=== PATIENT | male | born 1980 | race Caucasian/White ===

== ENCOUNTER 2023-12-11 10:59 | Outpatient (CLI) | payer OTHER, SELFPAY ==
--- OUTSIDE RECORDS SUMMARY | 2023-12-11 11:26 | XMS RPT_ITS | CCD ---
Author Name Unknown Address [address] [place] [address] Organization [facility] Care Team Providers Care 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 Name Role Phone [facility] Attending Unava ilable [facility] Primary Care Unava ilable [facility] Admitting Unava ilable Unknown, Pcp Unavailable Unavailable Kelly Rubin Unavailable Ruth Goldstein MD, Ankur Farrell Primary Care Provider Amy vailable Triston DAWKINS, Ankur Pedroza Primary Care Provider Triston DAWKINS, Ankur Pedroza Unavailable Ankur Goldstein MD Primary Care Provider Triston DAWKINS, Ankur Pedroza Unavailable ANKUR GOLDSTEIN Primary Care Unavaila ble THRUSHYOMI Attending Unavailable [employer] CONSULTANT, PRERNANAMABRANE Admitting Unavailable [employer] CONSULTANT, DARIA Attending Unavailable [employer] CONSULTANT, MELINDAE Admitting Unavailable STORMONT, ANKUR PEDROZA Primary Care Unavaila ble STORMONT, ANKUR PEDROZA Admitting Unavaila ble [employer] CONSULTANT, DARIA Attending Unavailable STORMONT, ANKUR PEDROZA Referring Unavaila ble STORMONT, ANKUR PEDROZA Primary Care Unavaila ble [employer] CONSULTANT, DARIA Attending Unavailable STORMONT, ANKUR PEDROZA Primary Care Unavaila ble Ankur Goldstein MD Primary Care Provider Amy vailable Allergies Allergy Classification Reported Allergen(s) Allergy Type Date of Onset Reaction(s) Facility (1 source) Penicillin Drug Allergy Unknown [facility] (9 sources) Penicillins; Translations: [PENICILLINS] Propensity to adverse reactions to drug 11-02-2021 Unknown [facility] Medications Current Medications Medication Drug Class(es) Dates Sig (Normalized) Sig (Original) [id number] 200 actuat albuterol 0.09 mg/actuat metered dose inhaler (1 source) beta2-Adrenergic Agonist Start: 06-30-2021 End: 07-09-2021 take 2 puff(s) by inhalation every four hours as needed for wheezing albuterol 90 mcg/inh inhalation aerosol ; 2 puff(s) inhaled every 4 hours, As Needed for wheezing or shortness of breath Quantity: 1 Refills: 0 Ordered: 30-Jun-2021 Kelly Rubin Start: 30-Jun-2021 End: 09-Jul-2021 Generic Substitution Allowed Comments: For inhalation only.It is very important that you take or use this exactly as directed. Do not skip doses or discontinue unless directed by your doctor.Obtain medical advice before taking any non-prescription drugs as some may affect the action of this medication.Shake well before use. Completed/Discontinued Medications Medication Drug Class(es) Dates Sig (Normalized) Sig (Original) iohexol (OMNIPAQUE) 350 MG/ML injection 75 mL (1 source) Start: 01-11-2022 End: 01-11-2022 iohexol (OMNIPAQUE) 350 MG/ML injection 75 mL 250 ml sodium chloride 9 mg/ml injection (1 source) Start: 01-11-2022 End: 01-11-2022 sodium chloride 0.9% IV solution 75 mL Problems Active Problems Problem Classification Problem Date Documented Da te Episodic/Chronic Abdominal hernia (4 sources) Inguinal hernia; Translations: [Unilateral inguinal hernia, without obstruction or gangrene, not specified as recurrent] Onset: 02-15-2022 Episodic Acute bronchitis (2 sources) Acute bronchitis; Translations: [Acute bronchitis] 06-30-2021 Episodic Diabetes mellitus with complications (1 source) Diabetic - poor control; Translations: [Type 2 diabetes mellitus with hyperglycemia] Chronic Essential hypertension (1 source) Essential hypertension; Translations: [Essential (primary) hypertension] Chronic Unclassified (2 sources) COUGH, RUNNY NOSE, SOB, SWEATING 06-30-2021 Past or Other Problems Problem Classification Problem Date Documented Da te Episodic/Chronic Other male genital disorders (9 sources) Large testicle; Translations: [Other specified disorders of the male genital organs] Onset: 11-02-2021 Episodic Other screening for suspected conditions (not mental disorders or infectious disease) (7 sources) Patient encounter status; Translations: [Encounter for screening for lipoid disorders] Onset: 11-02-2021 Episodic Unclassified (1 source) COUGH RUNNING NOSE SOB SWEATING 06-30-2021 Results Test Name Value Interpretation Reference Range Facil ity Vital Signs Date Time Vital Sign Value Performing Clinician Facility 11-15-2022 13:35-0500 Body temperature 98.1 [degF] Ankur Goldstein MD Work Phone: [facility] 11-15-2022 13:35-0500 Body weight 89.36 kg Ankur Goldstein MD Work Phone: [facility] 11-15-2022 13:35-0500 Diastolic blood pressure 92 mm[Hg] Ankur Goldstein MD Work Phone: [facility] 11-15-2022 13:35-0500 Heart rate 78 /min Ankur Goldstein MD Work Phone: [facility] 11-15-2022 13:35-0500 SaO2% (BldA) [Mass fraction] 98 % Ankur Goldstein MD Work Phone: [facility] 11-15-2022 13:35-0500 Systolic blood pressure 130 mm[Hg] Ankur Goldstein MD Work Phone: [facility] 04-04-2022 08:04-0400 Body mass index (BMI) [Ratio] 27.32 kg/m2 Daria Salcido MD Work Phone: [facility] 04-04-2022 08:04-0400 Body weight 83.92 kg Daria Salcido MD Work Phone: [facility] 04-04-2022 08:04-0400 Diastolic blood pressure 84 mm[Hg] Daria Salcido MD Work Phone: [facility] 04-04-2022 08:04-0400 Heart rate 78 /min Daria Salcido MD Work Phone: [facility] 04-04-2022 08:04-0400 Systolic blood pressure 128 mm[Hg] Daria Salcido MD Work Phone: [facility] 02-15-2022 10:51-0400 Body height 175.3 cm Daria Salcido MD Work Phone: [facility] 02-15-2022 10:51-0400 Body mass index (BMI) [Ratio] 28.37 kg/m2 Daria Salcido MD Work Phone: [facility] 02-15-2022 10:51-0400 Body temperature 98.29 [degF] Daria Salcido MD Work Phone: [facility] 02-15-2022 10:51-0400 Body weight 87.14 kg Daria Salcido MD Work Phone: [facility] 02-15-2022 10:51-0400 Diastolic blood pressure 90 mm[Hg] Daria Salcido MD Work Phone: [facility] 02-15-2022 10:51-0400 Heart rate 73 /min Daria Salcido MD Work Phone: [facility] 02-15-2022 10:51-0400 SaO2% (BldA) [Mass fraction] 96 % Daria Salcido MD Work Phone: [facility] 02-15-2022 10:51-0400 Systolic blood pressure 131 mm[Hg] Daria Salcido MD Work Phone: [facility] 12-14-2021 10:38-0500 Body temperature 97.5 [degF] Ankur Goldstein MD Work Phone: [facility] 12-14-2021 10:38-0500 Diastolic blood pressure 80 mm[Hg] Ankur Goldstein MD Work Phone: [facility] 12-14-2021 10:38-0500 Heart rate 74 /min Ankur Goldstein MD Work Phone: [facility] 12-14-2021 10:38-0500 SaO2% (BldA) [Mass fraction] 96 % Ankur Goldstein MD Work Phone: [facility] 12-14-2021 10:38-0500 Systolic blood pressure 120 mm[Hg] Ankur Goldstein MD Work Phone: [employer] [facility] 11-02-2021 14:11-0500 Body temperature 98.2 [degF] Ankur Goldstein MD Work Phone: [employer] [facility] 11-02-2021 14:11-0500 Body weight 88.45 kg Ankur Goldstein MD Work Phone: [employer] [facility] 11-02-2021 14:11-0500 Diastolic blood pressure 94 mm[Hg] Ankur Goldstein MD Work Phone: [employer] [facility] 11-02-2021 14:11-0500 Heart rate 85 /min Ankur Goldstein MD Work Phone: [employer] [facility] 11-02-2021 14:11-0500 SaO2% (BldA) [Mass fraction] 97 % Ankur Goldstein MD Work Phone: [employer] [facility] 11-02-2021 14:11-0500 Systolic blood pressure 142 mm[Hg] Ankur Goldstein MD Work Phone: [facility] 06-30-2021 12:52-0400 Body height 180.3 cm Pcp Unknown [facility] 06-30-2021 12:52-0400 Body temperature 96.26 [degF] Pcp Unknown [facility] 06-30-2021 12:52-0400 Diastolic blood pressure 89 mm[Hg] Pcp Unknown [facility] 06-30-2021 12:52-0400 Heart rate 83 /min Pcp Unknown [facility] 06-30-2021 12:52-0400 SaO2% (BldA) [Mass fraction] 97 % Pcp Unknown [facility] 06-30-2021 12:52-0400 Systolic blood pressure 134 mm[Hg] Pcp Unknown [facility] Encounters Encounter Date Encounter Type Care Provider Facility Start: 11-15-2022 End: 11-15-2022 Office outpatient visit 25 minutes Ankur Goldstein MD Work Phone: [facility] Procedures Date Procedure Procedure Detail Performing Clinician Start: 04-04-2022 History of repair of inguinal hernia Status post left inguinal hernia repair Daria Salcido MD Work Phone: Start: 01-11-2022 Ct abdomen & pelvis w/o contrst 1/> body re Ankur Goldstein MD Work Phone: Start: 11-18-2021 Lipid 1996 panel - Serum or Plasma Ankur Goldstein MD Work Phone: Plan of Treatment Date Care Activity Detail Author Start: 11-18-2026 Fasting lipid profile LIPID SCREENIN [facility] [employer] [facility] Start: 11-18-2026 Lipid panel LIPID SCREENING [facility] Start: 05-16-2023 End: 05-16-2023 Patient encounter procedure 05/16/2023 Office Visit Family Medicine Ankur Goldstein MD [address] [place] [address] [facility] Start: 11-15-2022 End: 11-15-2023 Complete blood count with white cell differential, automated CBC, EDIF, PLATELET Lab Routine Poorly controlled diabetes mellitus Expected: 11/15/2022, Expires: 11/15/2023 [facility] Payers Date Payer Category Payer Private Health Insurance [employer] C [employer]IC [id number] 2021-Present [address] [place] [address] [id number] 2021 Private Health Insurance [employer] C [employer]IC [id number] 2021-Present [address] [place] [address] [id number] 2021 Unknown 1980 Unknown [id number] 1980 Unknown [id number] 1980 Unknown [id number] 1980 Unknown [id number] Unknown [id number] Social History Date Type Detail Facility [facility] Tobacco smoking consumption unknown [facility] Start: 11-02-2021 End: 11-15-2022 Tobacco smoking status NHIS Never smoked tobacco [facility] Start: 11-02-2021 End: 11-15-2022 Tobacco use and exposure Former smokeless tobacco user [facility] Start: 11-02-2021 End: 11-15-2022 Alcohol intake Current drinker of alcohol (finding) [facility] Start: 11-02-2021 History SDOH Alcohol Comment occasionally [facility] Start: 1980 Sex Assigned At Not on file [facility] End: 08-08-2021 History of tobacco use User of smokeless tobacco [facility] Start: 02-15-2022 History SDOH Alcohol Comment rare [facility] Start: 02-05-2022 End: 04-04-2022 Exposure to SARS-CoV-2 (event) Not sure [facility] Start: 02-15-2022 Cigarette pack-years [facility] Start: 03-15-2022 History SDOH Alcohol Comment once a month - weekends [facility] Medical Equipment Procedure Code Equipment Code Equipment Origin al Text Equipment Identifier Dates Mesh 3 X 6in Polypropylene Flat Sheet - Sn/A [id number])[id number]/A, [id number] [facility] Start: 03-25-2022 Clinical Notes 11-02-2021 to 11-15-2022 Ankur Goldstein MD - 11/15/2022 1:50 PM Mirza Salcido MD - 04/04/2022 7:56 AM Raleigh Salcido MD - 02/15/2022 10:54 AM Domi Goldstein MD - 12/14/2021 10:40 AM EST Note Date & Type Note Facility 11-15-2022 History of Presen t illness Narrative Follow Up Visit Noah Burrell [id number] 1980 11/15/2022 Chief Complaint Patient presents with Other 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 He has type 2 diabetes mellitus. His disease course has been stable. Pertinent negatives for diabetes include no chest pain and no fatigue. Symptoms are stable. Risk factors for coronary artery disease include diabetes mellitus and obesity. An LEISA inhibitor/angiotensin II receptor lonny is being taken. Hypertension This is a new problem. The current episode started 1 to 4 weeks ago. The problem is uncontrolled. Pertinent negatives include no chest pain, palpitations or shortness of breath. Risk factors for coronary artery disease include diabetes mellitus, sedentary lifestyle and male gender. History: No past medical history on file. No past surgical history on file. Family History Problem Relation Age of Onset Heart Disease - Other Mother Cancer Father brain cancer Social History Socioeconomic History Marital status: Tobacco Use Smoking status: Never Smokeless tobacco: Former Vaping Use Vaping Use: Never used Substance and Sexual Activity Alcohol use: Yes Comment: occasionally Drug use: Never Sexual activity: Yes Partners: Female Social History Tobacco Use Smoking Status Never Smokeless Tobacco Former Social History Substance and Sexual Activity Alcohol Use Yes Comment: occasionally Social History Substance and Sexual Activity Drug Use Never Allergies: Penicillins Home Medications: Current Outpatient Medications: cyanocobalamin 1000 MCG tablet, Take 2.5 tablets by mouth., Disp: , Rfl: Multiple Vitamin (MULTIVITAMIN ADULT PO), Take by mouth., Disp: , Rfl: Losartan (Cozaar) 50 MG tablet, Take 1 tablet by mouth daily., Disp: 90 tablet, Rfl: 5 ROS: Review of Systems Constitutional: Negative for chills, fatigue and fever. Respiratory: Negative for cough and shortness of breath. Cardiovascular: Negative for chest pain and palpitations. Gastrointestinal: Negative for constipation and diarrhea. Physical Examination: Vital Signs: BP (!) 130/92 Pulse 78 Temp 98.1 F (36.7 C) Wt 89.4 kg (197 lb) SpO2 98% Smoking Status Never Physical Exam Constitutional: Appearance: Normal appearance. Neurological: Mental Status: He is alert. Psychiatric: Mood and Affect: Mood normal. Behavior: Behavior normal. Procedure none Laboratory and Additional Data Reviewed: Results for orders placed or performed in visit on 11/18/21 LIPID PANEL W CALCULATED LDL Result Value Ref Range CHOLESTEROL 190 120 - 200 MG/DL TRIGLYCERIDE 165 (H) 0 - 150 MG/DL HDL CHOLESTEROL 47 26 - 63 MG/DL LDL CHOLESTEROL, CALCULATED 110 MG/DL VLDL Cholesterol, Calculated 33 (H) 5.0 - 25 MG/DL TCHOL/HDL RATIO, MANUAL ENTER 4.04 RATIO BASIC METABOLIC PANEL Result Value Ref Range Glucose 136 (H) 70 - 100 MG/DL BUN 20 7 - 20 MG/DL CREATININE SERUM 1.30 (H) 0.7 - 1.2 MG/DL SODIUM 139 137 - 145 MMOL/L POTASSIUM 4.6 3.5 - 5.1 MMOL/L CHLORIDE 106 98 - 107 MMOL/L CARBON DIOXIDE (CO2) 26 22 - 30 MMOL/L ANION GAP 7 (L) 8 - 16 MMOL/L CALCIUM 9.1 8.4 - 10.2 MG/DL ESTIMATED GFR, NON AMER 65 ml/min/1.73sq.m ESTIMATED GFR, 78 ml/min/1.73sq.m GFR COMMENT Average GFR for 40-49 years old = 99. No images are attached to the encounter. Assessment and Plan: Noah Burrell is a 42 y.o. male that presents for follow up for Call the office for any questions or concerns. I did have discussion that if any medications are not covered or is not able to get the medications to call the office and let us know so other alternative/arrangements can be made. Noah was seen today for other. Diagnoses and all orders for this visit: Poorly controlled diabetes mellitus - AMB REFERRAL TO DIABETIC EDUCATION - COMPREHENSIVE METABOLIC PANEL; Future - LIPID PANEL W CALCULATED LDL; Future - CBC, EDIF, PLATELET; Future - HEMOGLOBIN A1C; Future Essential hypertension - Losartan (Cozaar) 50 MG tablet; Take 1 tablet by mouth daily. Ankur Goldstein MD documented in this encounter [facility] 04-04-2022 History of Presen t illness Narrative [facility] PATIENT: Noah Burrell DATE / TIME: 04/04/22 7:56 AM POS: Office AGE: 41 y.o. : 1980 RACE: [1] SEX: male PCP: Ankur Goldstein MD REFERRAL: No ref. provider found TOS: SUBJECTIVE: Status post left open inguinal hernia repair with mesh for large scrotal inguinal hernia continue the majority of the omentum. he returns today for follow-up. OBJECTIVE: BP 128/84 Pulse 78 Wt 83.9 kg (185 lb) BMI 27.32 kg/m PE Constitutional: Well-developed and well-nourished. HENT: AT / NC, EOM normal, no icterus, pupils equal Neck: Normal range of motion. Neck supple. No thyromegaly present. Cardiovascular: Normal rate and regular rhythm. Pulmonary/Chest: Effort normal. No respiratory distress. No wheezes, rales or rhonchi. Abdominal: Soft. No distension. No tenderness. Left inguinal incision intact without any erythema fluctuance or drainage healing ridge and fatty induration is Hematoma palpable likely within the scrotum but no evidence of recurrence of hernia Musculoskeletal: Normal range of motion. No deformity. No edema. Neurological: Alert and oriented to person, place, and time. No cranial nerve deficit. Skin: Skin is warm and dry. Psychiatric: Normal mood and affect. Behavior is normal. Lab Results Component Value Date WBC 7.26 03/15/2022 RBC 4.72 03/15/2022 HGB 14.0 03/15/2022 HCT 41.0 03/15/2022 PLT 246 03/15/2022 No results found for: AMYLASE No results found for: LIPASE IMAGING: PATHOLOGY: ASSESSMENT: Status post left open inguinal hernia repair with mesh for large scrotal inguinal hernia continue the majority of the omentum. he returns today for follow-up. PLAN: Patient Active Problem List Diagnosis Left inguinal hernia Preop examination Instructed patient to continue a lifting restriction of 10 pounds for a total of 4 weeks from his date of surgery Patient can return to my office if any problems arise concern for recurrence documented in this encounter [facility] 02-15-2022 History of Presen t illness Narrative [facility] PATIENT: Noah Burrell DATE / TIME: 02/15/22 10:54 AM POS: Office AGE: 41 y.o. : 1980 RACE: [1] SEX: male PCP: Ankur Goldstein MD REFERRAL: Ankur Goldstein* HISTORY OF PRESENT ILLNESS CC / Reason for Consult: Left inguinal hernia HPI: 41-year-old man without significant medical history but reports history of nondistended testicles requiring operative management at the age of 11 referred by his family physician for left-sided inguinal hernia. Reports the presence of the hernia for his entire life. Feels it has gotten larger recently. Complains of soreness and pain with certain positions movements and palpation. Denies any issues with bowel movements or urination. PAST MEDICAL / SURGICAL HISTORY History reviewed. No pertinent past medical history. Past Surgical History: Procedure Laterality Date UNDESCENDED TESTICLE EXPLORATION 1990 FAMILY HISTORY Family History Problem Relation Age of Onset Brain cancer Father Brain cancer Paternal Aunt SOCIAL HISTORY Data Unavailable Social History Tobacco Use Smoking Status Never Smoker Smokeless Tobacco Former User Quit date: 08/08/2021 Social History Substance and Sexual Activity Alcohol Use Yes Comment: rare Social History Substance and Sexual Activity Drug Use Never MEDICATIONS: Patient has a current medication list which includes the following prescription(s): cyanocobalamin and [id number] acid. ALLERGIES: Allergies Allergen Reactions Penicillins Unknown REVIEW OF SYSTEMS Pertinent positives and negatives are listed in HPI, PMSH, SH, ALL above and in Details below. The following systems were reviewed: [] Const (fevers, chills, wt. loss, fatigue) [] CV (HTN, CP, CERVANTES, edema, DVT) [] Resp (SOB, pleurisy, asthma, apnea) [] GI (N, V, D, C, M, abd pain, appetite) [] Musc (back pain, joint stiffness, gout) [] Neuro (seizures, syncope, paralysis) [] Psych (depression, anxiety) [] Endo (hot/cold intol, polyuria[DM]) [] Hem/Lymph (Anemia, LA, bleeding) [] Allerg/Immun (seasonal, immuniz) [] Eyes (diplopia, cataracts) [] ENT/mouth (dysphagia, epistaxis) [] (dysuria, hematuria) [] Skin/Breast (moles, rash, lumps, nipple changes) Details: PHYSICAL EXAM BP (!) 131/90 (BP Location: Right arm, Patient Position: Sitting, BP Cuff Size: Adult) Pulse 73 Temp 98.3 F (36.8 C) (Oral) Ht 5' 9 Wt 87.1 kg (192 lb 1.6 oz) SpO2 96% BMI 28.37 kg/m Details: Physical Exam Constitutional: Appearance: Normal appearance. HENT: Head: Normocephalic. Mouth/Throat: Mouth: Mucous membranes are moist. Eyes: Pupils: Pupils are equal, round, and reactive to light. Cardiovascular: Rate and Rhythm: Normal rate. Pulmonary: Effort: Pulmonary effort is normal. Abdominal: General: There is no distension. Palpations: Abdomen is soft. Tenderness: There is no abdominal tenderness. Genitourinary: Comments: Large left scrotal inguinal hernia incarcerated unable to reduce very tender to palpation. Unable to palpate left testicle Musculoskeletal: General: Normal range of motion. Skin: General: Skin is warm. Neurological: General: No focal deficit present. Mental Status: He is alert. Psychiatric: Mood and Affect: Mood normal. Thought Content: Thought content normal. LABS / X-RAYS Details: Laboratory No results found for: WBC, RBC, HGB, HCT, PLT No results found for: AMYLASE No results found for: LIPASE ASSESSMENT AND PLAN: Patient Active Problem List Diagnosis Left inguinal hernia Discussed with him the operative management. Due to its incarcerated nature, inability to palpate his testicle and the previous undescended testicle surgery that he had I would recommend open operative repair. Risk and possible complications of left-sided open inguinal hernia repair possible orchiectomy were discussed Was rhys with the patient about my concern of the need to perform a left-sided orchiectomy during his surgery as I am unable to palpate it have no idea where it is within relation to his hernia and the risk of devascularization when attempting to get the omentum up and out of the scrotum. Patient does have a CT abdomen and pelvis that was performed at [facility]. Report only comments on a left-sided inguinal hernia. However I am awaiting arrival of the images so that I can review to assess the right side inguinal canal. Patient understanding of the risks Consent signed Schedule today 1. Left inguinal hernia Case Request Operating Room: REPAIR HERNIA INGUINAL Vital signs Basic metabolic panel CBC ECG 12 Lead lactated Ringers infusion (This order has not been finalized) clindamycin (CLEOCIN) 900 mg in sodium chloride 0.9 % (NS) 50 mL IVPB (This order has not been finalized) Total time 30 minutes, greater than 50% spent [id number] with the patient obtaining history, performing exam explaining the procedure obtaining consent and coordinating care Anticip Anesthesia: Follow-up: ICD: Left inguinal hernia [K40.90] [] Thank you for the privilege of allowing me to participate in the care of Noah Burrell. documented in this encounter [facility] 12-14-2021 History of Presen t illness Narrative Follow Up Visit Noah Burrell [id number] 1980 12/14/2021 Chief Complaint Patient presents with Results Discuss ultra sound results History of Present Illness: Noah Burrell is a 41 y.o. male presenting for follow up of Pt here to go over his ultrasound: IMPRESSION: 1. There is increased blood flow in the left testicle. This may indicate orchiditis. 2. There is a hypoechoic region along the anterior aspect of the right testicle that is of uncertain etiology. It could represent postsurgical changes. 3. There is a small cystic lesion with fluid level posterior to the right testicle. This is also of uncertain etiology and could possibly represent postsurgical changes. 4. Possible left-sided varicocele. 5. There is prominent soft tissue in the left side of the scrotum. This may represent herniated fat. Recommend followup sonographic evaluation. Also consider a followup CT of the pelvis with IV and oral contrast. History: No past medical history on file. No past surgical history on file. Family History Problem Relation Age of Onset Heart Disease - Other Mother Cancer Father brain cancer Social History Socioeconomic History Marital status: Tobacco Use Smoking status: Never Smoker Smokeless tobacco: Former User Vaping Use Vaping Use: Never used Substance and Sexual Activity Alcohol use: Yes Comment: occasionally Drug use: Never Sexual activity: Yes Partners: Female Social History Tobacco Use Smoking Status Never Smoker Smokeless Tobacco Former User Social History Substance and Sexual Activity Alcohol Use Yes Comment: occasionally Social History Substance and Sexual Activity Drug Use Never Allergies: Penicillins Home Medications: Current Outpatient Medications: cyanocobalamin 1000 MCG tablet, Take 2,500 mcg by mouth., Disp: , Rfl: Multiple Vitamin (MULTIVITAMIN ADULT PO), Take by mouth., Disp: , Rfl: ROS: Review of Systems All other systems reviewed and are negative. Physical Examination: Vital Signs: BP 120/80 Pulse 74 Temp 97.5 F (36.4 C) SpO2 96% Smoking Status Never Smoker Physical Exam Constitutional: Appearance: Normal appearance. Neurological: Mental Status: He is alert. Psychiatric: Mood and Affect: Mood normal. Behavior: Behavior normal. Procedure none Laboratory and Additional Data Reviewed: Results for orders placed or performed in visit on 11/18/21 LIPID PANEL W CALCULATED LDL Result Value Ref Range CHOLESTEROL 190 120 - 200 MG/DL TRIGLYCERIDE 165 (H) 0 - 150 MG/DL HDL CHOLESTEROL 47 26 - 63 MG/DL LDL CHOLESTEROL, CALCULATED 110 MG/DL VLDL 33 (H) 5.0 - 25 MG/DL TCHOL/HDL RATIO, MANUAL ENTER 4.04 RATIO BASIC METABOLIC PANEL Result Value Ref Range GLUCOSE 136 (H) 70 - 100 MG/DL BUN 20 7 - 20 MG/DL CREATININE SERUM 1.30 (H) 0.7 - 1.2 MG/DL SODIUM 139 137 - 145 MMOL/L POTASSIUM 4.6 3.5 - 5.1 MMOL/L CHLORIDE 106 98 - 107 MMOL/L CARBON DIOXIDE (CO2) 26 22 - 30 MMOL/L ANION GAP 7 (L) 8 - 16 MMOL/L CALCIUM 9.1 8.4 - 10.2 MG/DL ESTIMATED GFR, NON AMER 65 ml/min/1.73sq.m ESTIMATED GFR, 78 ml/min/1.73sq.m GFR COMMENT Average GFR for 40-49 years old = 99. No images are attached to the encounter. Assessment and Plan: Noah Burrell is a 41 y.o. male that presents for follow up for Call the office for any questions or concerns. I did have discussion that if any medications are not covered or is not able to get the medications to call the office and let us know so other alternative/arrangements can be made. Noah was seen today for results. Diagnoses and all orders for this visit: Enlarged testicle - CT PELVIS WITH CONTRAST; Future - CT PELVIS WITHOUT CONTRAST; Future Ankur Goldstein MD documented in this encounter [facility] 11-02-2021 History of Presen t illness Narrative SUBJECTIVE: Noah Burrell is a 41 y.o. male presenting for his annual checkup. Pt had surgery when he was 12 and had an undescended testicle; complaining that here is a fluid filled sac there Current Outpatient Medications Medication Sig Dispense Refill cyanocobalamin 1000 MCG tablet Take 2,500 mcg by mouth. Multiple Vitamin (MULTIVITAMIN ADULT PO) Take by mouth. No current facility-administered medications for this visit. Allergies: Penicillins ROS: Feeling well. No dyspnea or chest pain on exertion. No abdominal pain, change in bowel habits, black or bloody stools. No urinary tract or prostatic symptoms. No neurological complaints. OBJECTIVE: The patient appears well, alert, oriented x 3, in no distress. BP (!) 142/94 Pulse 85 Temp 98.2 F (36.8 C) Wt 88.5 kg (195 lb) SpO2 97% Smoking Status Never Smoker ENT normal. Neck supple. No adenopathy or thyromegaly. VINICIUS. Lungs are clear, good air entry, no wheezes, rhonchi or rales. S1 and S2 normal, no murmurs, regular rate and rhythm. Abdomen is soft without tenderness, guarding, mass or organomegaly. exam: deferred. Extremities show no edema, normal peripheral pulses. Neurological is normal without focal findings. ASSESSMENT: healthy adult male Elevated bp-cont to monitor Enlarged testicles PLAN: begin progressive daily aerobic exercise program, follow a low fat, low cholesterol diet, attempt to lose weight, continue current healthy lifestyle patterns and return for routine annual checkups documented in this encounter [facility] Diagnosis Enlarged testicle Other specified disorder of male genital organs [facility] Diagnosis Enlarged testicle- Primary Other specified disorder of male genital organs [facility] Diagnosis Enlarged testicle Other specified disorder of male genital organs [facility] Diagnosis Inguinal hernia without obstruction or gangrene, recurrence not specified, unspecified laterality- Primary [facility] Diagnosis Left inguinal hernia- Primary Inguinal hernia without mention of obstruction or gangrene, unilateral or unspecified, (not specified as recurrent) Left inguinal hernia Inguinal hernia without mention of obstruction or gangrene, unilateral or unspecified, (not specified as recurrent) [facility] Diagnosis Status post left inguinal hernia repair- Primary Other [facility] Diagnosis Poorly controlled diabetes mellitus- Primary Type II or unspecified type diabetes mellitus without mention of complication, not stated as uncontrolled Essential hypertension Unspecified essential hypertension [facility] Consultation (Routine) - Authorized Specialty Diagnoses / Procedures Referred By Ashleigh watters Referred To Contact General Surgery Diagnoses Inguinal hernia without obstruction or gangrene, recurrence not specified, unspecified laterality Ankur Goldstein MD [address] [place] [address] [facility] Office Building, [address]th [place] [address] Referral ID Status Reason Start Date Expiration Date Visits Requested Visits Authorized [id number] Authorized Specialty Services Required/Pat ient's Best Interest 02/01/2022 02/01/[address] [facility] Summary Purpose Family History No Family History Records FoundNo Family History Records FoundNo Family History Records FoundNo Family History Records FoundNo Family History Records FoundNo Family History Records Found Advance Directives Documents on File Type Date Recorded 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 Advance Directives 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 Living Will Documents on File Type Date Recorded 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 Advance Directives and Living Will Reason for Referral Specialty Diagnoses / Procedures Referred By Ashleigh watters Referred To Contact Diagnoses Enlarged testicle Procedures US SCROTUM AND TESTICLES Ankur Goldstein MD [address] [place] [address] Referral ID Status Reason Start Date Expiration Date V isits Requested Visits Authorized [id number] New Request 11/02/2021 11/27/2022 1 1 Specialty Diagnoses / Procedures Referred By Contac t Referred To Contact Diagnoses Enlarged testicle Procedures US SCROTUM AND TESTICLES WITH DOPPLER US SCROTUM AND TESTICLES Ankur Goldstein MD [address] [place] [address] Referral ID Status Reason Start Date Expiration Date Visits Re quested Visits Authorized [id number] Closed 11/02/2021 11/27/2022 1 1 Specialty Diagnoses / Procedures Referred By Contac t Referred To Contact Diagnoses Enlarged testicle Procedures CT PELVIS WITHOUT CONTRAST IN CT SCAN,PELVIS,W/O CONTRAST Ankur Goldstein MD [address] [place] [address] Referral ID Status Reason Start Date Expiration Date V isits Requested Visits Authorized [id number] New Request 12/14/2021 01/08/2023 1 1 Specialty Diagnoses / Procedures Referred By Contac t Referred To Contact Diagnoses Enlarged testicle Procedures CT PELVIS WITH CONTRAST IN CT SCAN OF PELVIS CONTRAST Ankur Goldstein MD [address] [place] [address] Referral ID Status Reason Start Date Expiration Date V isits Requested Visits Authorized [id number] New Request 12/14/2021 01/08/2023 1 1 Specialty Diagnoses / Procedures Referred By Contac t Referred To Contact Computerized Tomography Scan Diagnoses Enlarged testicle Procedures CT ABDOMEN/PELVIS WITH AND WITHOUT CONTRAST CHG CT SCAN,ABDOMENT AND PELVIS,COMBO Ankur Goldstein MD [address] [place] [address] [place] [address] Referral ID Status Reason Start Date Expiration Date Visits Re quested Visits Authorized [id number] Closed 12/18/2021 01/12/2023 1 1 Specialty Diagnoses / Procedures Referred By Contac t Referred To Contact Endocrinology, Diabetes & Metabolism Diagnoses Poorly controlled diabetes mellitus Ankur Goldstein MD [address] [place] [address] Hosea Steiner MD [address] [place] [address] Referral ID Status Reason Start Date Expiration Date V isits Requested Visits Authorized [id number] New Request 11/15/2022 12/10/2023 1 1 Scheduling Instructions . Additional Source Comments (unrecognized sect ion and content) No Status Records FoundNo Status Records FoundNo Status Records FoundNo Status Records FoundNo Status Records FoundNo Status Records Found INFORMATION SOURCE (unrecogn ized section and content) DATE CREATED AUTHOR AUTHOR'S ORGANIZ ATION 07/05/2021 [facility] DATE CREATED AUTHOR AUTHOR'S ORGANIZ ATION 01/14/2022 [facility] DATE CREATED AUTHOR AUTHOR'S ORGANIZ ATION 01/17/2022 [facility] DATE CREATED AUTHOR AUTHOR'S ORGANIZ ATION 04/05/2022 [facility] DATE CREATED AUTHOR AUTHOR'S ORGANIZ ATION 04/05/2022 [facility] <item> Privacy Markings (unrecogniz ed section and content) Section Author: Divine Yan PROHIBITION ON REDISCLOSURE OF CONFIDENTIAL INFORMATION This notice accompanies a disclosure of information concerning a client made to you with the consent of such client. Reason for Visit (unrecogniz ed section and content) Specialty Diagnoses / Procedures Referred By Contac t Referred To Contact Family Medicine Diagnoses Encounter to establish care System, Provider Not In Ankur Goldstein MD [address] [address] Referral ID Status Reason Start Date Expiration Date Visits Re quested Visits Authorized [id number] Closed 10/02/2021 10/27/2022 1 1 Specialty Diagnoses / Procedures Referred By Contac t Referred To Contact Diagnoses Enlarged testicle Procedures US SCROTUM AND TESTICLES WITH DOPPLER US SCROTUM AND TESTICLES Ankur Goldstein MD [address] [place] [address] Referral ID Status Reason Start Date Expiration Date Visits Re quested Visits Authorized [id number] Closed 11/02/2021 11/27/2022 1 1 Reason Comments Results Discuss ultra sound results Specialty Diagnoses / Procedures Referred By Contac t Referred To Contact Computerized Tomography Scan Diagnoses Enlarged testicle Procedures CT ABDOMEN/PELVIS WITH AND WITHOUT CONTRAST CHG CT SCAN,ABDOMENT AND PELVIS,COMBO Ankur Goldstein MD [address] [place] [address] [place] [address] Referral ID Status Reason Start Date Expiration Date Visits Re quested Visits Authorized [id number] Closed 12/18/2021 01/12/2023 1 1 Reason Comments Consult N/p inguinal hernia Specialty Diagnoses / Procedures Referred By Ashleigh t Referred To Contact General Surgery Diagnoses Inguinal hernia without obstruction or gangrene, recurrence not specified, unspecified laterality Ankur Goldstein MD [address] [place] [address] [facility] [address] [facility] Office Building, [address] [place] [address] Referral ID Status Reason Start Date Expiration Date Visits Requested Visits Authorized [id number] Pending Review Specialty Services Required/Pat ient's Best Interest 02/01/2022 02/01/2023 1 1 Reason Comments Follow-up INGUINAL HERNIA REPA IR Reason Comments Other 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 Teams (unrecognized sec tion and content) 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 Relationship Specialty Start Date End Date Ankur Goldstein MD [address] [place] [id number] PCP - General Family Medicine 11/02/21 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 Relationship Specialty Start Date End Date Ankur Goldstein MD [address] [place] [address] PCP - General Family Medicine 11/02/21 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 Relationship Specialty Start Date End Date Ankur Goldstein MD [address] [place] [id number] PCP - General Family Medicine 02/01/22 Ankur Goldstein MD [address] [place] [address] Referring Physician Family Medicine 02/01/22 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 Relationship Specialty Start Date End Date Ankur Goldstein MD [address] [place] [id number] PCP - General Family Medicine 02/01/22 Ankur Goldstein MD [address] [place] [address] Referring Physician Family Medicine 02/01/22 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 This clinical summary was aggregated from multiple sources. Caution should be exercised in using it in the provision of clinical care. This summary normalizes information from multiple sources, and as a consequence, information in this document may materially change the coding, format and clinical context of patient data. In addition, data may be omitted in some cases. CLINICAL DECISIONS SHOULD BE BASED ON THE PRIMARY CLINICAL RECORDS. [facility] [employer] provides no warranty or guarantee of the accuracy or completeness of information in this document.
[2023-12-11 12:10] LABS: Absolute Lymphocyte Count 1.69 X10^3/uL (0.83-4.51); Absolute Neutrophil Count 3.3 X10^3/uL (2.0-7.7); Basophil# 0.06 X10^3/uL; Basophil% 1.1 % (0-1); Eosinophil# 0.06 X10^3/uL; Eosinophils% 1.1 % (0-5); Hematocrit 44.3 % (40-54); Lymphocyte # 1.69 X10^3/ul (0.83-4.51); Lymphocyte % 29.9 % (19-41); Mean Corp Hgb Conc 33.9 g/dL (32-36); Mean Corpuscular Hgb 29.8 pg (27.0-32.0); Mean Corpuscular Volume 87.9 fL (80-94); Monocyte# 0.52 X10^3/uL; Monocyte% 9.2 % (0-10); NRBC Flagged by Analyzer 0 % (0-5); Neutrophil # 3.32 X10^3/uL (2.7-7.7); Neutrophil % 58.5 % (47-70); Platelet Count 251 K/mm3 (150-450); RBC Distribution Width CV 12.4 % (11.6-14.6); RBC Distribution Width SD 40.1 fl (35.1-43.9); Red Blood Count 5.04 M/mm3 (4.6-6.2); White Blood Count 5.7 K/mm3 (4.4-11.0)
[2023-12-11 13:24] LABS: ALB/GLOB Ratio 1.1 RATIO (0.9-2.4); AST(SGOT) 20 U/L (15-37); Alanine Aminotransfer ALT/SGPT 34 U/L (16-61); Alkaline Phosphatase 58 U/L (45-117); Anion Gap 11 (5-15); BUN 23 mg/dL (7-18); BUN/Creat Ratio 19.3 RATIO (10-20); Calcium,Total 8.9 mg/dL (8.5-10.1); Chloride 105 mmol/L (98-107); Cholesterol 193 mg/dL (200); Creatinine, Serum 1.19 mg/dL (0.70-1.30); EST Glomerular Filtration Rate 71 mL/min (>60); Est Glom Filt Rate - Afr Amer 86 mL/min (>60); Globulin 3.6 g/dL (2.2-4.2); Glucose 123 mg/dL (74-106); High Density Lipoprotein 48 mg/dL; Potassium 4.3 mmol/L (3.5-5.1); Protein, Total 7.6 g/dL (6.4-8.2); Sodium Level 137 mmol/L (136-145); Triglycerides 110 mg/dL; Very Low Density Lipoprotein 22 mg/dL (5-40)
[2023-12-11 13:26] LABS: Microalbumin,Random Urine 6.8 mg/L (NO RANGE EST.)
== END 2023-12-11 23:59 | disposition home or self-care (01) ==
LOC: MFPLAB 11:00
PROVIDERS: PCP Family Medicine; Visit Provider Family Medicine
DX: Z00.00 Encounter for general adult medical examination without abnormal findings (principal); E11.9 Type 2 diabetes mellitus without complications; I10 Essential (primary) hypertension
CPT/HCPCS: 36415; 80053; 80061; 82043; 85025